=== PATIENT | male | born 1975 | race Hispanic/Latino ===

== ENCOUNTER 2021-08-29 09:01 | Inpatient (IN) | payer OTHER, SELFPAY ==
[2021-08-29 09:27] LABS: #Lymphocytes 1.4 thou/uL (1.20-3.40); #Neutrophils 7.8 thou/uL (1.40-6.50); %Eosinophils 0.4 % (0.0-10.0); %Lymphocytes 13.3 % (21.0-51.0); %Monocytes 9.8 % (0.0-10.0); %Neutrophils 76.5 % (42.0-75.0); Hemoglobin 16.4 g/dL (14.0-18.0); Mean Corpuscular HGB CONC 33.8 g/dL (32.0-36.0); Mean Corpuscular Hemoglobin 31.6 pg (27.0-31.0); Mean Corpuscular Volume 93.4 fL (78.0-98.0); Mean Platelet Volume 7.5 fL (7.4-10.4); Platelet Count 476 thou/uL (130-400); RBC Distribution Width 12.8 % (11.5-14.5); White Blood Cell (WBC) Count 10.2 thou/uL (4.8-10.8)
[2021-08-29] MEDS ORDERED: Morphine 4 MG/ML VIAL ONE ×2 (09:54→13:09)
[2021-08-29] MEDS ORDERED: Ondansetron PF 4 MG/2 ML Vial ONE (09:54)
[2021-08-29 10:01] LABS: ALT (SGPT) 57 U/L (8-55); AST (SGOT) 24 U/L (5-34); Albumin 4.4 g/dL (3.5-5.0); Alkaline Phosphatase 75 U/L (40-110); Anion Gap 17 mmol/L (10-20); BUN (Urea Nitrogen) 26 mg/dL (8.9-20.6); Bilirubin, Total 0.9 mg/dL (0.2-1.2); Calc. Creatinine Clearance 0 mL/min (70-130); Calcium 9.5 mg/dL (7.8-10.44); Carbon Dioxide 29 mmol/L (22-29); Chloride 99 mmol/L (98-107); Globulin 3.8 g/dL (2.4-3.5); Glucose 133 mg/dL (70-105); Potassium 4.5 mmol/L (3.5-5.1); Protein, Total 8.2 g/dL (6.0-8.3); Sodium 140 mmol/L (136-145)
[2021-08-29 11:27] LABS: Lipase 12 U/L (8-78); Magnesium 2.4 mg/dL (1.6-2.6)
[2021-08-29 13:36] LABS: Bilirubin Negative (Negative); Blood, Urine Negative (Negative); Clarity Clear (Clear); Glucose, Urine (Dipstick) Normal (Negative); Ketone, Urine Negative (Negative); Leukocyte Negative Leu/uL (Negative); Nitrite Negative (Negative); Protein, Urine (Dipstick) 20 mg/dL (Neg-Trace); Urobilinogen Normal mg/dL (Less than 2)
[2021-08-29 13:37] LABS: Specific Gravity, Urine Greater than 1.060 (1.002-1.036)
[2021-08-29] MEDS ORDERED: Dextrose 50% Abboject 50 ML SYRINGE SLOW IVP PRN (14:05)
[2021-08-29] MEDS ORDERED: Dextrose 5% in Water 1,000 ML IV PRN (14:05)
[2021-08-29 17:15] VITALS: BMI 36.8
[2021-08-29] MEDS: Sodium Chloride 0.9% 1,000 ML IV SCH (17:39)
[2021-08-29] MEDS: Morphine 4 MG/ML VIAL SLOW IVP PRN (18:46)
[2021-08-29] MEDS: Famotidine/PF 20 mg/2ml Vial SLOW IVP SCH (20:18)
[2021-08-30] MEDS: Morphine 4 MG/ML VIAL SLOW IVP PRN ×3 (00:28→08:59)
[2021-08-30] MEDS: Sodium Chloride 0.9% 1,000 ML IV SCH ×4 (00:29→19:40)
[2021-08-30 04:59] LABS: Hemoglobin 14.4 g/dL (14.0-18.0); Mean Corpuscular Hemoglobin 32.4 pg (27.0-31.0); Mean Corpuscular Volume 95.4 fL (78.0-98.0); Mean Platelet Volume 7.6 fL (7.4-10.4); Platelet Count 385 thou/uL (130-400); RBC Distribution Width 12.7 % (11.5-14.5); Red Blood Cell (RBC) Count 4.43 mill/uL (4.70-6.10); White Blood Cell (WBC) Count 7.2 thou/uL (4.8-10.8)
[2021-08-30 05:21] LABS: Band 15 % (5-11); Lymphocytes 15 % (21-51); MDiff Complete? YES; Monocytes 9 % (0-10); Neutrophil 61 % (42-75)
[2021-08-30 05:22] LABS: Anion Gap 13 mmol/L (10-20); BUN (Urea Nitrogen) 18 mg/dL (8.9-20.6); Calc. Creatinine Clearance 134 mL/min (70-130); Calcium 8.6 mg/dL (7.8-10.44); Carbon Dioxide 30 mmol/L (22-29); Chloride 103 mmol/L (98-107); Glucose 105 mg/dL (70-105); Magnesium 2.4 mg/dL (1.6-2.6); Phosphorus 3.8 mg/dL (2.3-4.7); Potassium 4.8 mmol/L (3.5-5.1); Sodium 141 mmol/L (136-145)
[2021-08-30] MEDS: Enoxaparin Sodium 40 MG/0.4 ML SYRINGE SC SCH (08:57)
[2021-08-30] MEDS: Famotidine/PF 20 mg/2ml Vial SLOW IVP SCH ×2 (08:57→21:26)
[2021-08-30] MEDS: Ondansetron PF 4 MG/2 ML Vial IVP PRN (11:04)
[2021-08-30] MEDS ORDERED: MD-Gastroview 120 ML BOT ONE (11:28)
[2021-08-31] MEDS: Sodium Chloride 0.9% 1,000 ML IV SCH ×2 (03:56→17:30)
[2021-08-31 06:11] LABS: #Eosinphils 0.1 thou/uL (0.0-0.7); #Lymphocytes 1.2 thou/uL (1.20-3.40); #Monocytes 0.7 thou/uL (0.11-0.59); #Neutrophils 4.2 thou/uL (1.40-6.50); %Basophils 0.3 % (0.0-1.0); %Eosinophils 0.8 % (0.0-10.0); %Lymphocytes 18.7 % (21.0-51.0); %Monocytes 11.3 % (0.0-10.0); %Neutrophils 68.9 % (42.0-75.0); Hemoglobin 12.6 g/dL (14.0-18.0); Mean Corpuscular HGB CONC 33.1 g/dL (32.0-36.0); Mean Corpuscular Volume 96.6 fL (78.0-98.0); Mean Platelet Volume 7.4 fL (7.4-10.4); Platelet Count 301 thou/uL (130-400); RBC Distribution Width 12.4 % (11.5-14.5); Red Blood Cell (RBC) Count 3.96 mill/uL (4.70-6.10); White Blood Cell (WBC) Count 6.2 thou/uL (4.8-10.8)
[2021-08-31 06:37] LABS: Anion Gap 11 mmol/L (10-20); BUN (Urea Nitrogen) 18 mg/dL (8.9-20.6); Calc. Creatinine Clearance 153 mL/min (70-130); Calcium 8.2 mg/dL (7.8-10.44); Carbon Dioxide 27 mmol/L (22-29); Chloride 108 mmol/L (98-107); Glucose 86 mg/dL (70-105); Magnesium 2.2 mg/dL (1.6-2.6); Phosphorus 2.8 mg/dL (2.3-4.7); Potassium 4.3 mmol/L (3.5-5.1); Sodium 142 mmol/L (136-145)
[2021-08-31] MEDS: Famotidine/PF 20 mg/2ml Vial SLOW IVP SCH ×2 (09:24→20:49)
[2021-08-31] MEDS: Enoxaparin Sodium 40 MG/0.4 ML SYRINGE SC SCH (09:24)
[2021-08-31] MEDS ORDERED: MD-Gastroview 120 ML BOT ONE (11:28)
[2021-08-31] MEDS ORDERED: Sodium Phosphate 30 MMOL in Sodium Chloride 0.9% 250 ML 250 ML IVPB SCH (12:00)
[2021-09-01] MEDS: Ondansetron PF 4 MG/2 ML Vial IVP PRN ×3 (04:16→18:40)
[2021-09-01 05:41] LABS: #Monocytes 0.8 thou/uL (0.11-0.59); #Neutrophils 5.7 thou/uL (1.40-6.50); %Basophils 0.2 % (0.0-1.0); %Eosinophils 0.4 % (0.0-10.0); %Lymphocytes 12.7 % (21.0-51.0); %Monocytes 10.2 % (0.0-10.0); %Neutrophils 76.5 % (42.0-75.0); Hemoglobin 12.3 g/dL (14.0-18.0); Mean Corpuscular HGB CONC 34.7 g/dL (32.0-36.0); Mean Corpuscular Hemoglobin 32.9 pg (27.0-31.0); Mean Corpuscular Volume 94.9 fL (78.0-98.0); Mean Platelet Volume 7.6 fL (7.4-10.4); Platelet Count 254 thou/uL (130-400); RBC Distribution Width 12.1 % (11.5-14.5); Red Blood Cell (RBC) Count 3.73 mill/uL (4.70-6.10); White Blood Cell (WBC) Count 7.5 thou/uL (4.8-10.8)
[2021-09-01 06:01] LABS: Anion Gap 12 mmol/L (10-20); BUN (Urea Nitrogen) 12 mg/dL (8.9-20.6); Calc. Creatinine Clearance 161 mL/min (70-130); Calcium 8.2 mg/dL (7.8-10.44); Carbon Dioxide 25 mmol/L (22-29); Chloride 106 mmol/L (98-107); Glucose 79 mg/dL (70-105); Magnesium 1.8 mg/dL (1.6-2.6); Phosphorus 2.8 mg/dL (2.3-4.7); Potassium 3.9 mmol/L (3.5-5.1); Sodium 139 mmol/L (136-145)
[2021-09-01] MEDS: Enoxaparin Sodium 40 MG/0.4 ML SYRINGE SC SCH (08:27)
[2021-09-01] MEDS: Famotidine/PF 20 mg/2ml Vial SLOW IVP SCH ×2 (08:27→20:34)
[2021-09-01] MEDS: Morphine 4 MG/ML VIAL SLOW IVP PRN ×3 (13:56→23:10)
[2021-09-01] MEDS: Sodium Chloride 0.9% 1,000 ML IV SCH ×2 (15:19→23:11)
[2021-09-01] MEDS ORDERED: diphenhydrAMINE 12.5 MG/5 ML UDCUP PO PRN (19:58)
[2021-09-02 04:37] LABS: #Eosinphils 0.1 thou/uL (0.0-0.7); #Lymphocytes 1.2 thou/uL (1.20-3.40); #Monocytes 0.8 thou/uL (0.11-0.59); #Neutrophils 5.5 thou/uL (1.40-6.50); %Basophils 0.2 % (0.0-1.0); %Eosinophils 0.9 % (0.0-10.0); %Lymphocytes 15.6 % (21.0-51.0); %Monocytes 10.1 % (0.0-10.0); %Neutrophils 73.1 % (42.0-75.0); Hemoglobin 12.9 g/dL (14.0-18.0); Mean Corpuscular HGB CONC 33.7 g/dL (32.0-36.0); Mean Corpuscular Hemoglobin 31.4 pg (27.0-31.0); Mean Corpuscular Volume 93.4 fL (78.0-98.0); Mean Platelet Volume 7.7 fL (7.4-10.4); Platelet Count 265 thou/uL (130-400); Red Blood Cell (RBC) Count 4.11 mill/uL (4.70-6.10); White Blood Cell (WBC) Count 7.5 thou/uL (4.8-10.8)
[2021-09-02 05:05] LABS: Anion Gap 13 mmol/L (10-20); BUN (Urea Nitrogen) 7 mg/dL (8.9-20.6); Calc. Creatinine Clearance 172 mL/min (70-130); Calcium 8.3 mg/dL (7.8-10.44); Carbon Dioxide 25 mmol/L (22-29); Chloride 104 mmol/L (98-107); Glucose 83 mg/dL (70-105); Magnesium 1.8 mg/dL (1.6-2.6); Phosphorus 2.6 mg/dL (2.3-4.7); Potassium 3.9 mmol/L (3.5-5.1); Sodium 138 mmol/L (136-145)
[2021-09-02] MEDS: Enoxaparin Sodium 40 MG/0.4 ML SYRINGE SC SCH (08:19)
[2021-09-02] MEDS: Famotidine/PF 20 mg/2ml Vial SLOW IVP SCH ×2 (08:19→21:38)
[2021-09-02] MEDS: Sodium Chloride 0.9% 1,000 ML IV SCH ×2 (08:25→17:59)
[2021-09-02] MEDS ORDERED: Potassium Phosphate 30 MMOL, Magnesium Sulfate 2 GM in Sodium Chloride 0.9% 250 ML 250 ML IVPB SCH (09:15)
[2021-09-02] MEDS ORDERED: Morphine 4 MG/ML VIAL SLOW IVP PRN (12:00)
[2021-09-02 13:17] LABS: SARS-CoV-2 NAA Rapid Test Not Detected (NotDetected)
[2021-09-02] MEDS ORDERED: traMADol HCl 50 MG TAB PO PRN ×2 (16:30)
[2021-09-02] MEDS: Acetaminophen 500 MG TAB PO SCH ×2 (17:59→19:42)
[2021-09-02] MEDS: hydrALAZINE 20 MG/ML VIAL SLOW IVP PRN ×2 (19:41)
[2021-09-02] MEDS: Ondansetron PF 4 MG/2 ML Vial IVP PRN (21:38)
[2021-09-03] MEDS: Sodium Chloride 0.9% 1,000 ML IV SCH ×4 (04:19→19:50)
[2021-09-03] MEDS: Acetaminophen 500 MG TAB PO SCH ×5 (04:22→21:47)
[2021-09-03] MEDS: Enoxaparin Sodium 40 MG/0.4 ML SYRINGE SC SCH (08:55)
[2021-09-03] MEDS: Famotidine/PF 20 mg/2ml Vial SLOW IVP SCH (08:59)
[2021-09-03] MEDS: Famotidine 20 MG TAB PO SCH ×2 (08:59→21:47)
[2021-09-03] MEDS: Ondansetron PF 4 MG/2 ML Vial IVP PRN (09:03)
[2021-09-03 10:55] LABS: #Lymphocytes 0.5 thou/uL (1.20-3.40); #Neutrophils 5.8 thou/uL (1.40-6.50); %Basophils 0.3 % (0.0-1.0); %Eosinophils 0.4 % (0.0-10.0); %Lymphocytes 7.4 % (21.0-51.0); %Monocytes 0.6 % (0.0-10.0); %Neutrophils 91.3 % (42.0-75.0); Hemoglobin 14.7 g/dL (14.0-18.0); Mean Corpuscular HGB CONC 33.9 g/dL (32.0-36.0); Mean Corpuscular Hemoglobin 31.4 pg (27.0-31.0); Mean Corpuscular Volume 92.8 fL (78.0-98.0); Mean Platelet Volume 7.8 fL (7.4-10.4); Platelet Count 212 thou/uL (130-400); RBC Distribution Width 12.3 % (11.5-14.5); Red Blood Cell (RBC) Count 4.69 mill/uL (4.70-6.10); White Blood Cell (WBC) Count 6.3 thou/uL (4.8-10.8)
[2021-09-03 11:14] LABS: Anion Gap 15 mmol/L (10-20); BUN (Urea Nitrogen) 8 mg/dL (8.9-20.6); Calc. Creatinine Clearance 151 mL/min (70-130); Carbon Dioxide 24 mmol/L (22-29); Chloride 100 mmol/L (98-107); Glucose 112 mg/dL (70-105); Magnesium 1.6 mg/dL (1.6-2.6); Phosphorus 3.1 mg/dL (2.3-4.7); Potassium 4.2 mmol/L (3.5-5.1); Sodium 135 mmol/L (136-145)
[2021-09-03] MEDS ORDERED: Magnesium Sulfate 4 GM in Sodium Chloride 0.9% 250 ML 250 ML IVPB SCH (12:15)
[2021-09-03] MEDS ORDERED: Sodium Chloride 0.9% 500 ML IV SCH (14:15)
[2021-09-04] MEDS: Acetaminophen 500 MG TAB PO SCH ×4 (04:10→23:20)
[2021-09-04] MEDS: Sodium Chloride 0.9% 1,000 ML IV SCH ×3 (04:11→18:34)
[2021-09-04] MEDS: Enoxaparin Sodium 40 MG/0.4 ML SYRINGE SC SCH (08:31)
[2021-09-04 09:45] LABS: INR-International Normal Ratio 1.2; Prothrombin Time 15.4 sec (12.0-14.7)
[2021-09-04 09:46] LABS: PTT 43.9 sec (22.9-36.1)
[2021-09-04] MEDS: Famotidine 20 MG TAB PO SCH ×2 (10:09→21:28)
[2021-09-04] MEDS ORDERED: Ondansetron HCl/PF 4 MG/2 ML Vial IVP PRN ×2 (10:42→17:52)
[2021-09-04] MEDS ORDERED: Promethazine HCl 25 MG/ML VIAL IM PRN ×4 (10:42→18:17)
[2021-09-04] MEDS ORDERED: HYDROmorphone 2 MG/ML VIAL SLOW IVP PRN ×2 (10:42→17:52)
[2021-09-04] MEDS ORDERED: Promethazine HCl 25 MG/ML VIAL IVPB PRN ×2 (10:42→17:52)
[2021-09-04] MEDS ORDERED: Fentanyl 100 MCG/2 ML VIAL ONE ×2 (13:35→18:51)
[2021-09-04] MEDS ORDERED: ceFAZolin 2 GM/DEX 5% 100 ML BAG ONE (13:38)
[2021-09-04] MEDS ORDERED: Ampicillin 2 GM VIAL ONE (13:38)
[2021-09-04] MEDS ORDERED: Lidocaine Viscous Sol 2% 15 ml UD Cup ONE (13:45)
[2021-09-04] MEDS ORDERED: PHENYLEPHRINE-NS 100 MCG/ML 10 ML SYRINGE ONE (13:49)
[2021-09-04] MEDS ORDERED: Metoclopramide HCl 10 MG/2 ML VIAL ONE (13:49)
[2021-09-04] MEDS ORDERED: Ondansetron PF 4 MG/2 ML Vial ONE (13:49)
[2021-09-04] MEDS ORDERED: Rocuronium Bromide 10 MG/ML (10ML VIAL) ONE (13:49)
[2021-09-04] MEDS ORDERED: PROPOFOL 200 MG/20 ML VIAL ONE (13:49)
[2021-09-04] MEDS ORDERED: Lidocaine 1% PF 5 ML VIAL ONE (13:49)
[2021-09-04] MEDS ORDERED: Midazolam HCl 2 mg/2 ml Vial ONE (13:50)
[2021-09-04] MEDS ORDERED: Benzocaine 20% Spray 60 ML CAN ONE (13:53)
[2021-09-04] MEDS ORDERED: HYDROmorphone 2 MG/ML VIAL ONE (15:37)
[2021-09-04] MEDS ORDERED: Rocuronium Bromide 50 MG/5 ML VIAL ONE (16:52)
[2021-09-04] MEDS ORDERED: Racepinephrine 2.25% 0.5 ML NEB ONE ×2 (17:51→18:24)
[2021-09-04] MEDS ORDERED: Meperidine HCl/PF 25 MG/ML VIAL SLOW IVP PRN ×2 (17:52)
[2021-09-04] MEDS ORDERED: Ketorolac Tromethamine 30 MG/ML VIAL IVP PRN (17:52)
[2021-09-04] MEDS ORDERED: PACU-Morphine 4MG/ML VIAL SLOW IVP PRN (17:52)
[2021-09-04] MEDS ORDERED: Morphine Sulfate 2 MG/ML SYRINGE SLOW IVP PRN (17:52)
[2021-09-04] MEDS ORDERED: Sodium Chloride 0.9% 10 ML ONE (17:58)
[2021-09-04] MEDS ORDERED: diphenhydrAMINE 50 MG/ML VIAL IVP PRN ×2 (18:00→18:17)
[2021-09-04] MEDS ORDERED: diphenhydrAMINE 25 MG CAP PO PRN ×2 (18:00→18:17)
[2021-09-04] MEDS ORDERED: diphenhydrAMINE 50 MG/ML VIAL IM PRN ×2 (18:00→18:17)
[2021-09-04] MEDS ORDERED: Communication Order-Pharmacy FS SCH ×2 (18:00→18:30)
[2021-09-04] MEDS ORDERED: Naloxone HCl 0.4 mg/ml Vial IV PRN ×2 (18:00→18:17)
[2021-09-04] MEDS ORDERED: HYDROmorphone 0.5 MG/0.5 ML SYRINGE ONE ×3 (18:06→18:32)
[2021-09-04] MEDS ORDERED: Zolpidem Tartrate 5 MG TAB PO PRN (18:17)
[2021-09-04] MEDS: Racepinephrine 2.25% 0.5 ML NEB NEB SCH (18:30)
[2021-09-04] MEDS ORDERED: Esmolol 100 MG/10 ML VIAL ONE (19:11)
[2021-09-04] MEDS ORDERED: Acetaminophen 325 MG/10.15 ML UDCUP ONE (19:27)
[2021-09-04] MEDS ORDERED: Ketorolac Tromethamine 30 MG/ML VIAL ONE (19:29)
[2021-09-04] MEDS: Ketorolac Tromethamine 30 MG/ML VIAL IVP SCH (19:30)
[2021-09-04] MEDS: Lactated Ringer's 1,000 ML IV SCH (20:00)
[2021-09-04] MEDS ORDERED: Morphine 4 MG/ML VIAL SLOW IVP PRN ×4 (20:47→21:50)
[2021-09-04] MEDS: ceFAZolin 2 GM/DEX 5% 100 ML BAG IVPB SCH (21:11)
[2021-09-04] MEDS: Famotidine/PF 20 mg/2ml Vial SLOW IVP SCH (21:24)
[2021-09-04] MEDS ORDERED: Metoprolol Tartrate 5 MG/5 ML VIAL IVP PRN (22:05)
[2021-09-05] MEDS: Ketorolac Tromethamine 30 MG/ML VIAL IVP SCH ×3 (01:21→17:37)
[2021-09-05] MEDS: Lactated Ringer's 1,000 ML IV SCH ×3 (01:30→22:21)
[2021-09-05] MEDS: Sodium Chloride 0.9% 1,000 ML IV SCH ×2 (03:47→08:48)
[2021-09-05] MEDS: Acetaminophen 500 MG TAB PO SCH ×3 (05:18→17:37)
[2021-09-05] MEDS: ceFAZolin 2 GM/DEX 5% 100 ML BAG IVPB SCH ×2 (05:19→15:41)
[2021-09-05 07:48] LABS: #Lymphocytes 0.9 thou/uL (1.20-3.40); #Monocytes 0.9 thou/uL (0.11-0.59); #Neutrophils 6.3 thou/uL (1.40-6.50); %Eosinophils 0.3 % (0.0-10.0); %Lymphocytes 10.9 % (21.0-51.0); %Monocytes 11.4 % (0.0-10.0); %Neutrophils 77.4 % (42.0-75.0); Hemoglobin 14.5 g/dL (14.0-18.0); Mean Corpuscular HGB CONC 34.1 g/dL (32.0-36.0); Mean Corpuscular Hemoglobin 32.2 pg (27.0-31.0); Mean Corpuscular Volume 94.2 fL (78.0-98.0); Mean Platelet Volume 9.1 fL (7.4-10.4); Platelet Count 128 thou/uL (130-400); RBC Distribution Width 12.7 % (11.5-14.5); Red Blood Cell (RBC) Count 4.51 mill/uL (4.70-6.10); White Blood Cell (WBC) Count 8.2 thou/uL (4.8-10.8)
[2021-09-05] MEDS: Racepinephrine 2.25% 0.5 ML NEB NEB SCH ×3 (08:12→18:25)
[2021-09-05 08:14] LABS: Anion Gap 13 mmol/L (10-20); BUN (Urea Nitrogen) 7 mg/dL (8.9-20.6); Calc. Creatinine Clearance 159 mL/min (70-130); Calcium 7.9 mg/dL (7.8-10.44); Carbon Dioxide 21 mmol/L (22-29); Chloride 106 mmol/L (98-107); Glucose 112 mg/dL (70-105); Magnesium 1.6 mg/dL (1.6-2.6); Phosphorus 2.5 mg/dL (2.3-4.7); Potassium 5.2 mmol/L (3.5-5.1); Sodium 135 mmol/L (136-145)
[2021-09-05] MEDS: Enoxaparin Sodium 40 MG/0.4 ML SYRINGE SC SCH (08:45)
[2021-09-05] MEDS: Famotidine/PF 20 mg/2ml Vial SLOW IVP SCH ×2 (08:45→20:43)
[2021-09-05] MEDS ORDERED: MAGNESIUM SULFATE IVPB SCH (09:15)
[2021-09-05] MEDS ORDERED: SODIUM CHLORIDE 0.9% IVPB SCH (09:15)
[2021-09-05] MEDS ORDERED: SODIUM PHOSPHATE IVPB SCH (09:15)
[2021-09-05] MEDS: Tamsulosin HCl 0.4 MG CAP PO SCH (20:43)
[2021-09-06] MEDS: Acetaminophen 500 MG TAB PO SCH ×4 (00:16→17:46)
[2021-09-06] MEDS: Sodium Chloride 0.9% 1,000 ML IV SCH ×3 (00:22→15:07)
[2021-09-06] MEDS: Ketorolac Tromethamine 30 MG/ML VIAL IVP SCH ×3 (01:55→17:18)
[2021-09-06] MEDS: HYDROmorphone 10 mg/100 ml CADD IVPB PRN (02:01)
[2021-09-06] MEDS: Racepinephrine 2.25% 0.5 ML NEB NEB SCH ×3 (06:35→17:55)
[2021-09-06] MEDS: Famotidine/PF 20 mg/2ml Vial SLOW IVP SCH ×2 (08:28→20:28)
[2021-09-06] MEDS: Enoxaparin Sodium 40 MG/0.4 ML SYRINGE SC SCH (08:28)
[2021-09-06] MEDS: Tamsulosin HCl 0.4 MG CAP PO SCH (20:28)
[2021-09-07] MEDS: Sodium Chloride 0.9% 1,000 ML IV SCH ×3 (00:19→16:19)
[2021-09-07] MEDS: Acetaminophen 500 MG TAB PO SCH ×4 (00:19→18:11)
[2021-09-07] MEDS: HYDROmorphone 10 mg/100 ml CADD IVPB PRN (03:47)
[2021-09-07 05:54] LABS: #Eosinphils 0.1 thou/uL (0.0-0.7); #Monocytes 0.9 thou/uL (0.11-0.59); #Neutrophils 9.8 thou/uL (1.40-6.50); %Basophils 0.2 % (0.0-1.0); %Eosinophils 0.5 % (0.0-10.0); %Lymphocytes 8.5 % (21.0-51.0); %Monocytes 7.9 % (0.0-10.0); %Neutrophils 82.9 % (42.0-75.0); Hemoglobin 11.9 g/dL (14.0-18.0); Mean Corpuscular HGB CONC 34.4 g/dL (32.0-36.0); Mean Corpuscular Volume 95.9 fL (78.0-98.0); Mean Platelet Volume 8.9 fL (7.4-10.4); Platelet Count 120 thou/uL (130-400); RBC Distribution Width 13.2 % (11.5-14.5); White Blood Cell (WBC) Count 11.8 thou/uL (4.8-10.8)
[2021-09-07 06:25] LABS: Anion Gap 15 mmol/L (10-20); BUN (Urea Nitrogen) 6 mg/dL (8.9-20.6); Calc. Creatinine Clearance 211 mL/min (70-130); Calcium 7.5 mg/dL (7.8-10.44); Carbon Dioxide 23 mmol/L (22-29); Chloride 104 mmol/L (98-107); Glucose 86 mg/dL (70-105); Magnesium 1.9 mg/dL (1.6-2.6); Phosphorus 2.4 mg/dL (2.3-4.7); Potassium 4.2 mmol/L (3.5-5.1); Sodium 138 mmol/L (136-145)
[2021-09-07] MEDS: Racepinephrine 2.25% 0.5 ML NEB NEB SCH ×3 (07:55→22:39)
[2021-09-07] MEDS: Famotidine/PF 20 mg/2ml Vial SLOW IVP SCH (08:14)
[2021-09-07] MEDS: Enoxaparin Sodium 40 MG/0.4 ML SYRINGE SC SCH (08:14)
[2021-09-07] MEDS ORDERED: Pantoprazole 40 MG VIAL IVP SCH ×2 (10:00→11:00)
[2021-09-07] MEDS ORDERED: Sodium Chloride 0.9% (PF) 10 ML VIAL FS PRN (10:45)
[2021-09-07] MEDS ORDERED: Magnesium 2 GM/50 ML 2 GM in Premix Bag 1 BAG IVPB SCH (13:15)
[2021-09-07] MEDS: Tamsulosin HCl 0.4 MG CAP PO SCH (21:15)
[2021-09-07] MEDS: Pantoprazole 40 MG VIAL IVP SCH (21:15)
[2021-09-08] MEDS: Acetaminophen 500 MG TAB PO SCH ×5 (00:48→20:14)
[2021-09-08] MEDS: Sodium Chloride 0.9% 1,000 ML IV SCH ×3 (00:49→17:38)
[2021-09-08] MEDS: HYDROmorphone 10 mg/100 ml CADD IVPB PRN (06:25)
[2021-09-08 06:32] LABS: Band 14 % (5-11); Hemoglobin 11.7 g/dL (14.0-18.0); Lymphocytes 6 % (21-51); MDiff Complete? YES; Mean Corpuscular HGB CONC 33.6 g/dL (32.0-36.0); Mean Corpuscular Hemoglobin 32.4 pg (27.0-31.0); Mean Corpuscular Volume 96.7 fL (78.0-98.0); Mean Platelet Volume 9.2 fL (7.4-10.4); Monocytes 7 % (0-10); Myelocyte 1 % (0-0); Neutrophil 72 % (42-75); Platelet Count 130 thou/uL (130-400); Platelet Morphology Comment Appears Adequate; RBC Distribution Width 13.2 % (11.5-14.5); Red Blood Cell (RBC) Count 3.59 mill/uL (4.70-6.10); White Blood Cell (WBC) Count 13.2 thou/uL (4.8-10.8)
[2021-09-08 06:36] LABS: Anion Gap 17 mmol/L (10-20); BUN (Urea Nitrogen) 4 mg/dL (8.9-20.6); Calc. Creatinine Clearance 226 mL/min (70-130); Calcium 7.7 mg/dL (7.8-10.44); Carbon Dioxide 22 mmol/L (22-29); Chloride 104 mmol/L (98-107); Glucose 91 mg/dL (70-105); Magnesium 1.8 mg/dL (1.6-2.6); Phosphorus 2.7 mg/dL (2.3-4.7); Potassium 3.8 mmol/L (3.5-5.1); Sodium 139 mmol/L (136-145)
[2021-09-08] MEDS: Racepinephrine 2.25% 0.5 ML NEB NEB SCH ×3 (06:59→18:06)
[2021-09-08] MEDS ORDERED: Magnesium Sulfate 2 GM in Sodium Chloride 0.9% 100 ML IV SCH (08:00)
[2021-09-08] MEDS: Enoxaparin Sodium 40 MG/0.4 ML SYRINGE SC SCH (08:29)
[2021-09-08] MEDS: Pantoprazole 40 MG VIAL IVP SCH ×2 (08:29→20:07)
[2021-09-08] MEDS ORDERED: Potassium Phosphate 30 MMOL, Magnesium Sulfate 2 GM in Sodium Chloride 0.9% 250 ML 250 ML IVPB SCH (09:00)
[2021-09-08] MEDS ORDERED: MD-Gastroview 120 ML BOT ONE (13:54)
[2021-09-08] MEDS ORDERED: Acetaminophen 325 MG TAB PO SCH ×2 (18:00)
[2021-09-08] MEDS: traMADol HCl 50 MG TAB PO SCH ×2 (18:02→23:05)
[2021-09-08] MEDS: D5W-AA 4.25% with LYTES 1,000 ML IV SCH (18:14)
[2021-09-08] MEDS: Tamsulosin HCl 0.4 MG CAP PO SCH (20:07)
[2021-09-08] MEDS: Ibuprofen 600 MG TAB PO PRN (20:14)
[2021-09-09] MEDS: Ibuprofen 600 MG TAB PO PRN ×2 (02:14→08:37)
[2021-09-09] MEDS: D5W-AA 4.25% with LYTES 1,000 ML IV SCH (02:42)
[2021-09-09] MEDS: Acetaminophen 500 MG TAB PO SCH ×3 (05:04→17:36)
[2021-09-09] MEDS: traMADol HCl 50 MG TAB PO SCH ×3 (05:05→17:36)
[2021-09-09 07:40] LABS: Anion Gap 11 mmol/L (10-20); BUN (Urea Nitrogen) 9 mg/dL (8.9-20.6); Calc. Creatinine Clearance 234 mL/min (70-130); Calcium 7.8 mg/dL (7.8-10.44); Carbon Dioxide 27 mmol/L (22-29); Chloride 106 mmol/L (98-107); Glucose 137 mg/dL (70-105); Magnesium 1.9 mg/dL (1.6-2.6); Phosphorus 3.1 mg/dL (2.3-4.7); Potassium 3.6 mmol/L (3.5-5.1); Sodium 140 mmol/L (136-145)
[2021-09-09] MEDS: Racepinephrine 2.25% 0.5 ML NEB NEB SCH (07:41)
[2021-09-09 08:13] LABS: Hemoglobin 10.6 g/dL (14.0-18.0); Mean Corpuscular HGB CONC 35.3 g/dL (32.0-36.0); Mean Corpuscular Hemoglobin 33.3 pg (27.0-31.0); Mean Corpuscular Volume 94.2 fL (78.0-98.0); Mean Platelet Volume 8.6 fL (7.4-10.4); Platelet Count 148 thou/uL (130-400); RBC Distribution Width 13.2 % (11.5-14.5); White Blood Cell (WBC) Count 12.5 thou/uL (4.8-10.8)
[2021-09-09] MEDS: Enoxaparin Sodium 40 MG/0.4 ML SYRINGE SC SCH (08:39)
[2021-09-09] MEDS: Pantoprazole 40 MG VIAL IVP SCH ×2 (08:39→20:42)
[2021-09-09 09:18] LABS: Band 11 % (5-11); Eosinophils 1 % (0-10); Lymphocytes 13 % (21-51); MDiff Complete? YES; Metamyelocyte 1 % (0-0); Monocytes 1 % (0-10); Myelocyte 2 % (0-0); Neutrophil 71 % (42-75); Platelet Morphology Comment Appears Adequate; RBC Morphology Normal
[2021-09-09] MEDS ORDERED: Potassium Phosphate 15 MMOL in Sodium Chloride 0.9% 250 ML 250 ML IVPB SCH (09:30)
[2021-09-09] MEDS ORDERED: Ibuprofen 200 MG TAB PO PRN (10:47)
[2021-09-09] MEDS ORDERED: Sulfameth/Trimethoprim DS 800-160mg TAB PO SCH (11:00)
[2021-09-09] MEDS ORDERED: Morphine 4 MG/ML VIAL SLOW IVP SCH (11:00)
[2021-09-09] MEDS: Sulfameth/Trimethoprim DS 800-160mg TAB PO SCH (20:42)
[2021-09-09] MEDS: Tamsulosin HCl 0.4 MG CAP PO SCH (20:42)
[2021-09-09] MEDS: Ondansetron PF 4 MG/2 ML Vial IVP PRN (20:42)
[2021-09-09 21:58] LABS: SARS-CoV-2 PCR by NAA Not Detected (NotDetected)
[2021-09-10] MEDS: traMADol HCl 50 MG TAB PO SCH ×5 (00:39→21:07)
[2021-09-10] MEDS: Acetaminophen 500 MG TAB PO SCH ×5 (00:39→21:08)
[2021-09-10 06:25] LABS: #Eosinphils 0.1 thou/uL (0.0-0.7); #Lymphocytes 1.3 thou/uL (1.20-3.40); #Monocytes 1.1 thou/uL (0.11-0.59); #Neutrophils 8.3 thou/uL (1.40-6.50); %Basophils 0.4 % (0.0-1.0); %Eosinophils 1.2 % (0.0-10.0); %Lymphocytes 11.6 % (21.0-51.0); %Monocytes 10.2 % (0.0-10.0); %Neutrophils 76.7 % (42.0-75.0); Hemoglobin 12.4 g/dL (14.0-18.0); Mean Corpuscular HGB CONC 33.6 g/dL (32.0-36.0); Mean Corpuscular Hemoglobin 32.2 pg (27.0-31.0); Mean Corpuscular Volume 95.7 fL (78.0-98.0); Mean Platelet Volume 8.6 fL (7.4-10.4); Platelet Count 179 thou/uL (130-400); RBC Distribution Width 13.4 % (11.5-14.5); Red Blood Cell (RBC) Count 3.86 mill/uL (4.70-6.10); White Blood Cell (WBC) Count 10.9 thou/uL (4.8-10.8)
[2021-09-10 06:49] LABS: Anion Gap 15 mmol/L (10-20); BUN (Urea Nitrogen) 5 mg/dL (8.9-20.6); Calc. Creatinine Clearance 218 mL/min (70-130); Calcium 8.2 mg/dL (7.8-10.44); Carbon Dioxide 23 mmol/L (22-29); Chloride 104 mmol/L (98-107); Glucose 101 mg/dL (70-105); Magnesium 1.7 mg/dL (1.6-2.6); Phosphorus 3.9 mg/dL (2.3-4.7); Potassium 3.8 mmol/L (3.5-5.1); Sodium 138 mmol/L (136-145)
[2021-09-10] MEDS ORDERED: Magnesium 2 GM/50 ML 2 GM in Premix Bag 1 BAG IVPB SCH (08:00)
[2021-09-10] MEDS: Enoxaparin Sodium 40 MG/0.4 ML SYRINGE SC SCH (08:43)
[2021-09-10] MEDS: Senokot S 8.6-50 MG TAB PO SCH ×2 (08:44→20:10)
[2021-09-10] MEDS: Sulfameth/Trimethoprim DS 800-160mg TAB PO SCH ×2 (08:44→20:10)
[2021-09-10] MEDS: Polyethylene Glycol 3350 17 GM Packet PO SCH (08:45)
[2021-09-10] MEDS: Ondansetron PF 4 MG/2 ML Vial IVP PRN ×2 (13:39→21:09)
[2021-09-10] MEDS: Tamsulosin HCl 0.4 MG CAP PO SCH (20:10)
[2021-09-11] MEDS: traMADol HCl 50 MG TAB PO SCH ×2 (05:27→12:16)
[2021-09-11] MEDS: Acetaminophen 500 MG TAB PO SCH ×2 (05:27→12:16)
[2021-09-11] MEDS: Sulfameth/Trimethoprim DS 800-160mg TAB PO SCH (11:02)
[2021-09-11] MEDS: Senokot S 8.6-50 MG TAB PO SCH (11:02)
[2021-09-11] MEDS: Enoxaparin Sodium 40 MG/0.4 ML SYRINGE SC SCH (11:03)
[2021-09-11] MEDS: Polyethylene Glycol 3350 17 GM Packet PO SCH (11:03)
[2021-09-11 11:59] VITALS: BP 129/86; TEMP 98.4
== END 2021-09-11 14:45 | disposition home or self-care (01) | DRG 330 ==
LOC: ERS 09:01 → SJJU 14:08
PROVIDERS: ADMIT Surgery; ATTEND Surgery
PROC: 0D9670Z Drainage of Stomach with Drainage Device, Via Natural or Artificial Opening (ICD-10-PCS; 2021-08-29)
PROC: 0DB80ZZ Excision of Small Intestine, Open Approach (ICD-10-PCS; principal; 2021-09-04)
PROC: 0DNB0ZZ Release Ileum, Open Approach (ICD-10-PCS; 2021-09-04)
PROC: 0DN80ZZ Release Small Intestine, Open Approach (ICD-10-PCS; 2021-09-04)
DX: K56.51 Intestinal adhesions [bands], with partial obstruction (principal); T81.49XA Infection following a procedure, other surgical site, initial encounter; Z20.822 Contact with and (suspected) exposure to COVID-19; E66.9 Obesity, unspecified; Y83.8 Other surgical procedures as the cause of abnormal reaction of the patient, or of later complication, without mention of misadventure at the time of the procedure; Z90.49 Acquired absence of other specified parts of digestive tract; Z68.36 Body mass index [BMI] 36.0-36.9, adult
CPT/HCPCS: 36415; 71045; 74018; 74019; 74177; 74250; 80048; 80053; 81003; 83690; 83735; 84100; 85007; 85025; 85027; 85610; 85730; 86850; 86900; 86901; 88307; 96361; 96374; 96375; 96376; C9113; J0290; J0360; J1170; J1650; J1885; J2250; J2270; J2405; J2704; J2765; J3010; J3475; J7030; J7050; J7120; J7620; Q0163; Q9963; S0028; U0002; U0003; U0005

== ENCOUNTER 2021-09-19 09:22 | Inpatient (IN) | payer OTHER ==
[2021-09-19] MEDS ORDERED: Iopamidol-370 76% 500 ML 1 ML ONE (10:16)
[2021-09-19] MEDS ORDERED: Iopamidol 370 76% 50 ML VIAL FS ONE (10:16)
[2021-09-19] MEDS ORDERED: Vancomycin 1 GM/200 ML BAG ONE (11:50)
[2021-09-19] MEDS ORDERED: Piperacillin/Tazobactam 4.5 GM VIAL ONE (11:50)
[2021-09-19] MEDS ORDERED: Ketorolac Tromethamine 30 MG/ML VIAL ONE (11:50)
[2021-09-19 11:56] LABS: #Lymphocytes 1.4 thou/uL (1.20-3.40); #Monocytes 0.5 thou/uL (0.11-0.59); #Neutrophils 3.2 thou/uL (1.40-6.50); %Basophils 0.4 % (0.0-1.0); %Eosinophils 0.9 % (0.0-10.0); %Monocytes 9.3 % (0.0-10.0); %Neutrophils 62.4 % (42.0-75.0); Hemoglobin 12.4 g/dL (14.0-18.0); Mean Corpuscular HGB CONC 32.8 g/dL (32.0-36.0); Mean Corpuscular Hemoglobin 31.1 pg (27.0-31.0); Mean Corpuscular Volume 94.7 fL (78.0-98.0); Mean Platelet Volume 6.8 fL (7.4-10.4); Platelet Count 453 thou/uL (130-400); RBC Distribution Width 12.8 % (11.5-14.5); Red Blood Cell (RBC) Count 3.98 mill/uL (4.70-6.10); White Blood Cell (WBC) Count 5.1 thou/uL (4.8-10.8)
[2021-09-19 12:19] LABS: ALT (SGPT) 15 U/L (8-55); AST (SGOT) 9 U/L (5-34); Albumin 3.4 g/dL (3.5-5.0); Alkaline Phosphatase 88 U/L (40-110); Anion Gap 11 mmol/L (10-20); BUN (Urea Nitrogen) 6 mg/dL (8.9-20.6); Bilirubin, Total 0.3 mg/dL (0.2-1.2); Calc. Creatinine Clearance 0 mL/min (70-130); Calcium 9.1 mg/dL (7.8-10.44); Carbon Dioxide 28 mmol/L (22-29); Chloride 101 mmol/L (98-107); Globulin 3.5 g/dL (2.4-3.5); Glucose 114 mg/dL (70-105); Potassium 4.3 mmol/L (3.5-5.1); Protein, Total 6.9 g/dL (6.0-8.3); Sodium 136 mmol/L (136-145)
[2021-09-19 12:58] LABS: Bilirubin Negative (Negative); Blood, Urine Negative (Negative); Clarity Clear (Clear); Glucose, Urine (Dipstick) Normal (Negative); Ketone, Urine Negative (Negative); Leukocyte Negative Leu/uL (Negative); Nitrite Negative (Negative); Protein, Urine (Dipstick) 20 mg/dL (Neg-Trace); Specific Gravity, Urine 1.021 (1.002-1.036)
[2021-09-19] MEDS ORDERED: Ondansetron PF 4 MG/2 ML Vial ONE (15:34)
[2021-09-19] MEDS ORDERED: hydrALAZINE 20 MG/ML VIAL SLOW IVP PRN (15:51)
[2021-09-19] MEDS ORDERED: Ondansetron PF 4 MG/2 ML Vial IVP PRN (15:51)
[2021-09-19] MEDS ORDERED: Dextrose 5% in Water 1,000 ML IV PRN (15:51)
[2021-09-19] MEDS ORDERED: Ondansetron ODT 4 MG TAB PO PRN (15:51)
[2021-09-19] MEDS ORDERED: Dextrose 50% Abboject 50 ML SYRINGE SLOW IVP PRN (15:51)
[2021-09-19] MEDS ORDERED: traMADol HCl 50 MG TAB PO PRN (15:56)
[2021-09-19] MEDS ORDERED: Cyclobenzaprine 10 MG TAB PO PRN (15:56)
[2021-09-19 19:37] VITALS: BMI 32.2
[2021-09-19] MEDS: Piperacillin/Tazobactam 3.375 GM in Sodium Chloride 0.9% 100 ML IVPB SCH (20:08)
[2021-09-19] MEDS: Famotidine 20 MG TAB PO SCH (20:09)
[2021-09-19] MEDS: Senokot S 8.6-50 MG TAB PO SCH (20:09)
[2021-09-19] MEDS: Acetaminophen 500 MG TAB PO SCH (20:11)
[2021-09-19] MEDS: Ibuprofen 800 MG TAB PO SCH (20:11)
[2021-09-19] MEDS: Sodium Chloride 0.9% 1,000 ML IV SCH (20:12)
[2021-09-20] MEDS: Acetaminophen 500 MG TAB PO SCH ×4 (01:53→21:05)
[2021-09-20] MEDS: traMADol HCl 50 MG TAB PO PRN (01:56)
[2021-09-20] MEDS: Sodium Chloride 0.9% 1,000 ML IV SCH (02:04)
[2021-09-20] MEDS: Piperacillin/Tazobactam 3.375 GM in Sodium Chloride 0.9% 100 ML IVPB SCH ×3 (04:38→21:05)
[2021-09-20] MEDS: Ibuprofen 800 MG TAB PO SCH ×3 (04:38→21:04)
[2021-09-20 06:39] LABS: #Eosinphils 0.1 thou/uL (0.0-0.7); #Lymphocytes 1.3 thou/uL (1.20-3.40); #Monocytes 0.4 thou/uL (0.11-0.59); #Neutrophils 1.9 thou/uL (1.40-6.50); %Basophils 0.3 % (0.0-1.0); %Eosinophils 1.5 % (0.0-10.0); %Lymphocytes 36.2 % (21.0-51.0); %Monocytes 10.3 % (0.0-10.0); %Neutrophils 51.7 % (42.0-75.0); Hemoglobin 10.4 g/dL (14.0-18.0); Mean Corpuscular HGB CONC 32.4 g/dL (32.0-36.0); Mean Corpuscular Hemoglobin 30.8 pg (27.0-31.0); Mean Corpuscular Volume 95.1 fL (78.0-98.0); Mean Platelet Volume 6.8 fL (7.4-10.4); Platelet Count 397 thou/uL (130-400); RBC Distribution Width 12.7 % (11.5-14.5); Red Blood Cell (RBC) Count 3.38 mill/uL (4.70-6.10); White Blood Cell (WBC) Count 3.6 thou/uL (4.8-10.8)
[2021-09-20 07:03] LABS: Anion Gap 11 mmol/L (10-20); BUN (Urea Nitrogen) 4 mg/dL (8.9-20.6); Calc. Creatinine Clearance 161 mL/min (70-130); Calcium 8.6 mg/dL (7.8-10.44); Carbon Dioxide 26 mmol/L (22-29); Chloride 107 mmol/L (98-107); Glucose 102 mg/dL (70-105); Potassium 4.1 mmol/L (3.5-5.1); Sodium 140 mmol/L (136-145)
[2021-09-20] MEDS: Famotidine 20 MG TAB PO SCH ×2 (09:23→21:05)
[2021-09-20] MEDS: Senokot S 8.6-50 MG TAB PO SCH ×2 (09:24→21:05)
[2021-09-20] MEDS: Polyethylene Glycol 3350 17 GM Packet PO SCH (09:24)
[2021-09-20] MEDS: Morphine 4 MG/ML VIAL SLOW IVP PRN (11:32)
[2021-09-20 14:29] LABS: SARS-CoV-2 PCR by NAA Not Detected (NotDetected)
[2021-09-21] MEDS: Acetaminophen 500 MG TAB PO SCH ×4 (01:18→20:25)
[2021-09-21] MEDS: Ibuprofen 800 MG TAB PO SCH ×3 (03:25→20:25)
[2021-09-21] MEDS: traMADol HCl 50 MG TAB PO PRN (03:25)
[2021-09-21] MEDS: Piperacillin/Tazobactam 3.375 GM in Sodium Chloride 0.9% 100 ML IVPB SCH ×3 (03:26→20:26)
[2021-09-21] MEDS: Polyethylene Glycol 3350 17 GM Packet PO SCH (09:41)
[2021-09-21] MEDS: Senokot S 8.6-50 MG TAB PO SCH ×2 (09:41→20:24)
[2021-09-21] MEDS: Famotidine 20 MG TAB PO SCH ×2 (09:41→20:24)
[2021-09-22] MEDS: Acetaminophen 500 MG TAB PO SCH ×4 (01:49→20:33)
[2021-09-22] MEDS: traMADol HCl 50 MG TAB PO PRN (01:50)
[2021-09-22] MEDS: Ibuprofen 800 MG TAB PO SCH ×3 (04:00→20:32)
[2021-09-22] MEDS: Piperacillin/Tazobactam 3.375 GM in Sodium Chloride 0.9% 100 ML IVPB SCH (04:00)
[2021-09-22 06:14] LABS: Hemoglobin 10.7 g/dL (14.0-18.0); Mean Corpuscular HGB CONC 33.5 g/dL (32.0-36.0); Mean Corpuscular Hemoglobin 31.8 pg (27.0-31.0); Mean Platelet Volume 6.9 fL (7.4-10.4); Platelet Count 373 thou/uL (130-400); Red Blood Cell (RBC) Count 3.38 mill/uL (4.70-6.10); White Blood Cell (WBC) Count 3.8 thou/uL (4.8-10.8)
[2021-09-22 06:22] LABS: Band 2 % (5-11); Eosinophils 1 % (0-10); Hypochromia SLIGHT = 6-15 cells (100X) (0-5/hpf); Lymphocytes 47 % (21-51); MDiff Complete? YES; Monocytes 3 % (0-10); Neutrophil 47 % (42-75); Platelet Morphology Comment Appears Adequate
[2021-09-22] MEDS: Senokot S 8.6-50 MG TAB PO SCH ×2 (08:35→20:32)
[2021-09-22] MEDS: Famotidine 20 MG TAB PO SCH (08:35)
[2021-09-22] MEDS: Polyethylene Glycol 3350 17 GM Packet PO SCH (08:35)
[2021-09-22] MEDS: Amoxicillin/Potassium Clav 875 MG TAB PO SCH ×2 (15:05→22:23)
[2021-09-23] MEDS: Acetaminophen 500 MG TAB PO SCH ×3 (02:16→15:26)
[2021-09-23] MEDS: Ibuprofen 800 MG TAB PO SCH ×2 (04:13→12:13)
[2021-09-23] MEDS: Amoxicillin/Potassium Clav 875 MG TAB PO SCH ×2 (05:53→15:26)
[2021-09-23] MEDS: Polyethylene Glycol 3350 17 GM Packet PO SCH (07:57)
[2021-09-23] MEDS: Senokot S 8.6-50 MG TAB PO SCH (07:58)
[2021-09-23] MEDS: Morphine 4 MG/ML VIAL SLOW IVP PRN (09:55)
[2021-09-23] MEDS ORDERED: Saccharomyces boulardii 250 MG CAP PO SCH (10:15)
[2021-09-23 12:11] VITALS: BP 111/74; TEMP 98.2
[2021-09-24] MEDS ORDERED: Saccharomyces boulardii 250 MG CAP PO SCH (09:00)
== END 2021-09-23 16:09 | disposition home or self-care (01) | DRG 920 ==
LOC: ERS 09:22 → SURG A 15:51
PROVIDERS: ADMIT Surgery; ATTEND Surgery
DX: T81.31XA Disruption of external operation (surgical) wound, not elsewhere classified, initial encounter (principal); K56.609 Unspecified intestinal obstruction, unspecified as to partial versus complete obstruction; Z20.822 Contact with and (suspected) exposure to COVID-19; K59.09 Other constipation; Y83.8 Other surgical procedures as the cause of abnormal reaction of the patient, or of later complication, without mention of misadventure at the time of the procedure; B96.20 Unspecified Escherichia coli [E. coli] as the cause of diseases classified elsewhere; Z79.899 Other long term (current) drug therapy
CPT/HCPCS: 36415; 71045; 74177; 80048; 80053; 81003; 83605; 85007; 85025; 85027; 87040; 87070; 87077; 87086; 87186; 87205; 93005; J1885; J2270; J2405; J2543; J3370; J3490; J7050; Q9967; U0003; U0005

== ENCOUNTER 2023-04-20 21:33 | Emergency (ER) | payer OTHER ==
[2023-04-21] MEDS ORDERED: Dexamethasone 10 MG/ML VIAL ONE (02:47)
== END 2023-04-21 03:20 | disposition home or self-care (01) ==
LOC: ERS 21:33
DX: L25.9 Unspecified contact dermatitis, unspecified cause (principal); F17.210 Nicotine dependence, cigarettes, uncomplicated
CPT/HCPCS: 36416; 96372; 99283; J1100